=== PATIENT | male | born 1950 | race Caucasian/White ===

== ENCOUNTER 2018-12-22 15:13 | Emergency (ER) | payer MEDICARE, OTHER ==
[2018-12-22 15:55] VITALS: BP 138/67
--- NOTE | 2018-12-22 16:54 | UC ---
UC General HPI - History of Current Complaint Chief Complaint: UCGeneralIllness Stated Complaint: SORE THROAT,COUGH Time Seen by Provider: 12/22/18 16:11 Hx Obtained From: Patient, Family/Hand Alterations Seamstress Onset/Duration: Sudden Onset, Lasting Hours - over the past 3 hours Pain Intensity: 9 - throat Associated Signs & Symptoms: Positive: Cough - slight, Immunocompromised, Other - states otherwise feels well.. Negative: Abdominal Pain, Chest Pain, Dizziness , Diarrhea, Hemoptysis, Nausea, SOB, Vomiting, Wheezing, Weakness - Allergy/Home Medications Allergies/Adverse Reactions: Allergies Allergy/AdvReac Type Severity Reaction Status Date / Time No Known Allergies Allergy Verified 12/22/18 15:47 Home Medications: Home Medications Ascorbic Acid TAB* [Vitamin C TAB*] 1,000 mg PO DAILY 12/22/18 [History Confirmed 12/22/18] Aspirin 81 mg CHEW TAB* [Aspirin Low Dose TAB*] 81 mg PO DAILY 12/22/18 [ History Confirmed 12/22/18] Calcium Carb, Citrate/Vit D3 [Calcium+D3 Gradual Releas] 1 tab PO BID 12/22/18 [ History Confirmed 12/22/18] Cholecalciferol (Vitamin D3) [Vitamin D3] 2,000 unit PO DAILY 12/22/18 [History Confirmed 12/22/18] Clobetasol 0.05% OINT* 1 applic TOPICAL BID PRN 12/22/18 [History Confirmed 07/11] Ferrous Gluconate [Iron] 65 mg PO DAILY 12/22/18 [History Confirmed 12/22/18] Filgrastim [Neupogen] 1 dose IJ SEE INSTRUCTIONS 12/22/18 [History Confirmed 07/11] Magnesium Oxide [Magnesium] 500 mg PO DAILY 12/22/18 [History Confirmed 12/22/18 ] Multivitamins/Minerals TAB* [Theragran/minerals TAB*] 1 tab PO DAILY 12/22/18 [ History Confirmed 12/22/18] Omeprazole (Nf) [Prilosec (NF)] 40 mg PO BID 12/22/18 [History Confirmed ] Ruxolitinib (NF) [Jakafi (NF)] 20 mg PO BID 12/22/18 [History Confirmed 12/22/18 ] Zinc 50 mg PO DAILY 12/22/18 [History Confirmed 12/22/18] - Additional Comments Additional History of Present Illness Comments: Hx of T-Cell LGL Leukemia, being treated. PMH/Surg Hx/FS Hx/Imm Hx Previously Healthy: Yes GI/ History: Other - GERD Cancer History: Other - T-cell LGL Leukemia - Surgical History Surgical History: Yes Surgery Procedure, Year, and Place: prostectomy - Family History Known Family History: Positive: Non-Contributory - Social History Occupation: Retired Alcohol Use: Rare Substance Use Type: None Smoking Status (MU): Never Smoked Tobacco Review of Systems All Other Systems Reviewed And Are Negative: Yes Constitutional: Positive: Negative Skin: Positive: Negative Eyes: Positive: Negative ENT: Positive: Sore Throat Respiratory: Positive: Cough - slight, started a few hours ago.. Negative: Shortness Of Breath Gastrointestinal: Positive: Negative Genitourinary: Positive: Negative Neurovascular: Positive: Negative Musculoskeletal: Positive: Negative Neurological: Positive: Negative Psychological: Positive: Negative Is Patient Immunocompromised?: Yes - on chemotherapy for his T-cell leukemia. Physical Exam Triage Information Reviewed: Yes Appearance: Well-Appearing, No Pain Distress, Well-Nourished Vital Signs: Initial Vital Signs Temp 99.2 F 12/22/18 15:47 Pulse 89 12/22/18 15:47 Resp 15 12/22/18 15:47 BP 138/67 12/22/18 15:47 Pulse Ox 100 12/22/18 15:47 Vital Signs Reviewed: Yes Eyes: Positive: Conjunctiva Clear ENT: Positive: Normal ENT inspection, Pharynx normal, TMs normal, Hoarse voice, Uvula midline. Negative: Tonsillar swelling, Tonsillar exudate, Sinus tenderness Neck: Positive: Supple, Nontender, No Lymphadenopathy Respiratory: Positive: Chest non-tender, Lungs clear, Normal breath sounds, No respiratory distress. Negative: Crackles, Rhonchi, Wheezing Cardiovascular: Positive: No Murmur, Brisk Capillary Refill Abdomen Description: Positive: Nontender, No Organomegaly, Soft Musculoskeletal Exam: Normal Neurological Exam: Normal Psychological Exam: Normal Skin Exam: Normal Diagnostics - Radiology No standard instances Radiology Interpretation Completed By: Radiologist Summary of Radiographic Findings: IMPRESSION: HYPERINFLATION, CONSISTENT WITH COPD. NO ACTIVE CARDIOPULMONARY DISEASE. Course/Dx - Course Course Of Treatment: Immunocomprimised patient with acute onset of sore throat and slight cough over the last 3 hours. He is afebrile and otherwise feels and appears well. He has a prescription from his Oncologist for Levaquin 500mg qd for 10 days and I have instructed him to take the medication. He showed me his most recent CBC done which had WBC of 27.5 (usually runs ~30's) Abs. Neut Ct of 16.0(0.6-4.2). - Diagnoses Provider Diagnosis: Throat pain in adult Discharge - Sign-Out/Discharge Documenting (check all that apply): Patient Departure All imaging exams completed and their final reports reviewed: Yes - Discharge Plan Condition: Stable Disposition: HOME Patient Education Materials: Pharyngitis (ED) Referrals: No Primary Care Phys,NOPCP [Primary Care Provider] - Additional Instructions: Start Levaquin 500mg daily for 10 days due to acute onset throat pain while being treated for leukemia. If you develop fevers, chill, night sweats or worsening symptoms, report directly to the Emergency Department. Follow-up with your Oncologist upon returning home. - Billing Disposition and Condition Condition: STABLE Disposition: Home
== END 2018-12-22 17:16 | disposition home or self-care (01) ==
LOC: UCCORT 15:13
DX: J02.9 Acute pharyngitis, unspecified (principal); C91.Z0 Other lymphoid leukemia not having achieved remission
CPT/HCPCS: 71046; 87651; 99201; G0463